=== PATIENT | male | born 1970 | race Hispanic/Latino ===

== ENCOUNTER 2020-03-18 15:06 | Emergency (ER) | payer SELFPAY ==
[~2020-03-18] VITALS: Ht 175.3 cm; Wt 70.0 kg
[~2020-03-18 15:06] MED LIST: CIPRO XR500 MG PO; FLAGYL250 MG PO; LORTAB 5 PO; LOTENSIN10 MG PO; NO
[2020-03-18] MEDS ORDERED: BACTROBAN TOP (16:12)
[2020-03-18] MEDS ORDERED: KEFLEX500 M1 PO (16:12)
[2020-03-18 16:30] VITALS: BP 122/68
== END 2020-03-18 16:30 | disposition home or self-care (01) | DRG 603 ==
LOC: ED 15:06
DX: L01.00 Impetigo, unspecified (principal)
CPT/HCPCS: J0561

== ENCOUNTER 2020-05-10 23:13 | Emergency (ER) | payer SELFPAY ==
[~2020-05-10] VITALS: Ht 175.3 cm; Wt 68.0 kg
[~2020-05-10 23:13] MED LIST changes: +BACTROBAN TOP; +KEFLEX500 M1 PO
[2020-05-11] MEDS ORDERED: PIMOZIDE2 MG PO (00:27)
[2020-05-11 01:00] VITALS: BP 112/70
== END 2020-05-11 01:00 | disposition home or self-care (01) | DRG 885 ==
LOC: ED 23:13
DX: F22 Delusional disorders (principal); S00.31XA Abrasion of nose, initial encounter; T14.8XXA Other injury of unspecified body region, initial encounter; F17.200 Nicotine dependence, unspecified, uncomplicated; X58.XXXA Exposure to other specified factors, initial encounter